=== PATIENT | male | born 1990 | race Caucasian/White ===

== ENCOUNTER 2025-04-26 09:45 | Outpatient (REF) | payer OTHER, SELFPAY ==
[2025-04-26 13:11] LABS: Appearance Urine Clear; Glucose Urine UA Negative (Negative); PH 6.0 (5.0-9.0); Specific Gravity - Urine 1.020 (1.005-1.025)
[2025-04-26 13:30] LABS: MANUAL DIFF FLAG NO
[2025-04-26 13:35] LABS: Hematocrit 44.1 % (42.0-52.0); Hemoglobin 14.8 g/dl (14.0-18.0); Imm Gran Abs Auto 0.01 X10*3/uL (0.00-0.03); Imm Gran Pct Auto 0.2 % (0.0-0.4); Lymphocytes Absolute Auto 1.5 X10*3/uL (1.2-4.9); Mean Corpuscular HGB Conc 33.6 g/dl (31.0-36.0); Mean Corpuscular Hemoglobin 29.1 pg (27.0-33.0); Mean Corpuscular Volume 86.6 fL (80.0-98.0); NRBC Abs Auto 0.000 X10*3/uL (0.0-0.012); NRBC Pct Auto 0.0 /100WBC (0.0-0.2); Platelet Count 281 X10*3/uL (160-400); Red Blood Count 5.09 X10*6/uL (4.60-5.80); White Blood Count 5.5 X10*3/uL (4.8-10.8)
[2025-04-26 13:58] LABS: Cholesterol 220 mg/dL (<200); HDL Cholesterol 46 mg/dL (>40); Magnesium 2.1 mg/dL (1.6-2.6); Triglycerides 121 mg/dL (<150)
[2025-04-26 19:00] LABS: Folate 9.7 ng/mL (> or = 4.0); Vitamin B12 431 pg/mL (200-900)
[2025-04-27 08:21] LABS: HBS Num1 144.45 mIU/mL (0-7.99); HBsAGNum1 0.42 S/CO (0.00-0.99); HIV Num 1 0.06 S/CO (0.00-0.99); Hepatitis B Surface Antigen Negative (Negative); ~HepC Num1 0.11 S/CO (0.00-0.79); ~Hepatitis B Surface Antibody REACTIVE (Nonreactive); ~Hepatitis C Antibody Nonreactive (Nonreactive)
[2025-04-30 04:54] LABS: VITAMIN D (1,25 OH) D3 43 pg/mL; Vit D (1,25-Dihydroxy) Total 43 pg/mL (18-72); Vitamin D (1,25 OH) D2 <8 pg/mL
== END 2025-04-26 09:46 | disposition home or self-care (01) ==
LOC: HO.HKASLDS 09:45
PROVIDERS: PCP Student in an Organized Health Care Education/Training Program; Visit Provider Student in an Organized Health Care Education/Training Program
DX: Z13.9 Encounter for screening, unspecified (principal); Z23 Encounter for immunization; M54.50 Low back pain, unspecified; R10.31 Right lower quadrant pain; I73.00 Raynaud's syndrome without gangrene; R03.0 Elevated blood-pressure reading, without diagnosis of hypertension; F17.290 Nicotine dependence, other tobacco product, uncomplicated; Z78.9 Other specified health status
CPT/HCPCS: 36415; 80061; 81003; 82607; 82652; 82746; 83036; 83735; 84443; 85025; 86706; 86803; 87340; 87389; 90471; 90656; 96127; 99202

== ENCOUNTER 2025-04-26 09:45 | Outpatient (AMB) | payer OTHER, SELFPAY ==
--- NOTE | 2025-04-26 09:46 | A.OFFPC_ITS ---
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 Consultant Required: No Accompanied by: Self / Same As Patient Allergies shellfish derived (shellfish) Allergy (Mild, Verified 04/26/25 09:52) Vomiting Tobacco use date assessed: 04/26/25 Dental Screening Dental Screen Date: 04/26/25 Did you have a dental visit in the last 12 months?: Yes Did you have a dental problem in the last 6 months where you did not have access to dental care?: No Was dental information given to patient?: Patient has dentist HPI HPI Comments History of Present Illness Details History of Present Illness The patient is a 34-year-old male presenting to establish primary care and for evaluation of lower back pain. Low back pain: The patient reports recurrent episodes of low back pain, with this being the third occurrence this year. The pain is typically triggered by exertion, such as pushing heavy equipment at his job in the . For the most recent episode, he sought treatment at an urgent care facility where he was prescribed a muscle relaxer, and he also uses a topical menthol product for relief. The patient owns a lumbar support belt but does not use it consistently. The back pain is currently better. Right lower quadrant abdominal pain: The patient reports intermittent discomfort in the right lower abdominal quadrant, near his belt line, which comes and goes. Recently, this has occurred almost every other day. He notes the sensation feels similar to being constipated, but he has regular bowel movements every one to two days without straining. The discomfort can also be felt when lying on his right side. Raynaud's phenomenon: The patient reports that two of his fingertips turn white-yellow when exposed to cold, which he identifies as Raynaud's phenomenon. He manages these episodes with heated gloves or hand warmers. Nicotine dependence: The patient uses nicotine pouches, consuming approximately four to five per day. He has been using them for two years after transitioning from e-cigarettes. Alcohol use: The patient reports drinking alcohol, typically beer and tequila, on Fridays, Saturdays, and Sundays. Elevated blood pressure: The patient had an elevated blood pressure reading during the visit. He denies any prior history of being told he has high blood pressure. Surgical History: - No prior surgical history reported. Medications: - Muscle relaxer (unspecified), as neede d for low back pain, obtained from urgent care. - Topical menthol analgesic, as needed f or low back pain. 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 - Tobacco/Nicotine: Uses 4-5 nicotine po uches daily for the past two years, having switched from e-cigarettes. - Alcohol: Drinks beer and tequila on we ekends (Friday, Friday, and Friday). - Illicit Drugs: Denies. - Diet: The patient's household diet con sists mainly of meat and vegetables due to his 's dietary restrictions, but he occasionally eats foods like pizza when outside the home. - Caffeine: Drinks one cup of coffee rodger ly. - Sleep: Aims for and typically gets sev en hours of sleep per night, which he tracks with his watch. Family History: - Mother: May have a history of diabetes and was treated with blood pressure medication. Diagnostic Results: - No prior results were discussed. Past Medical History - Recurrent low back pain - Raynaud's phenomenon Health Maintenance - Comprehensive baseline lab studies wer e ordered, including a complete blood count, hemoglobin A1c, hepatitis B and C screen, HIV test, lipid panel, magnesium, thyroid panel, urinalysis, vitamin B12, folate, and vitamin D. - The patient was counseled on the benef its of reducing alcohol and nicotine intake for overall health and blood pressure management. - Scheduled a follow-up visit in [facility] [place] to discuss lab results and re- evaluate his clinical status. [facility] Family History (Updated 04/26/25 @ 09:55 by Art Staton MA) Maternal Grandfather Stroke Mother Diabetes Other Thyroid disease Social History (Updated 04/26/25 @ 09:55 by Art Staton MA) Housing: House Alcohol intake: current Patient Tobacco Use Status: Never used Tobacco e-Cigarette/Vaping Use: Never Used service: Yes Current occupational status: employed Current occupation: Cognitive needs: No Hearing needs: No Vision needs: No Questionnaire PHQ-9 Over the last 2 weeks, how often have you been bothered by any of the following problems? 1. Little interest or pleasure in doing things: not at all 2. Feeling down, depressed, or hopeless: not at all 3. Trouble falling or staying asleep, or sleeping too much: not at all 4. Feeling tired or having little energy: several days 5. Poor appetite or overeating: several days 6. Feeling bad about yourself - or that you are a failure or have let yourself or your family down: not at all 7. Trouble concentrating on things, such as reading the newspaper or watching television: not at all 8. Moving or speaking so slowly that other people could have noticed. Or the opposite - being so fidgety or restless that you have been moving around a lot more than usual: not at all 9. Thoughts that you would be better off or of hurting yourself in some wa y: not at all Total score: 2 Depression Screening Interpretation: Negative Depression Screening Done: Yes 62730 - PHQ-9 Billing: Yes Source: Developed by Drs. Teddy Brown, Mariangel Bsuh, Bony Briceño and colleagues, with an educational joel from [employer]. Thrive Questionnaire Date Thrive assessed: 04/26/25 I am a: Patient What is your living situation today?: I have a steady place to live Within the past 12 months, did the food you bought not last and you didn't have the money to get more?: Never true Within the past 12 months, did you worry whether your food would run out before you got money to buy more?: Never true Do you have trouble paying for medicines?: No Do you have trouble getting transportation to medical appointments?: No Do you have trouble paying your heating and electricity bill?: No Do you have trouble taking care of your child, family member or friend?: No Are you currently unemployed and looking for a job?: No Are you interested in more education?: No Please select the resources that you would like help with: None Currently or been in a relationship where the following occur: No concerns reported THRIVE Score: 0 AUDIT C Alcohol Use Questionnaire (AUDIT-C) 1. How often do you have a drink containing alcohol?: 2-3 times a week 2. How many drinks containing alcohol do you have on a typical day when you are drinking?: 3 or 4 3. How often do you have six or more drinks on one occasion?: Less than monthly Total Score: 5 TOMY-7 AMB Questionnaire TOMY-7 Date TOMY - 7 assessed: 04/26/25 Feeling nervous, anxious, or on edge: 1 = Several days Not being able to stop or control worryin = Several days Worrying too much about different things: 1 = Several days Trouble relaxin = Several days Being so restless that it is hard to sit still: 1 = Several days Becoming easily annoyed or irritable: 1 = Several days Feeling afraid as if something awful might happen: 1 = Several days Total TOMY-7 score (0-4 normal; 5-9 mild; 10-14 moderate; 15-21 severe): 7 Source: Developed by Drs. Teddy Brown, Mariangel Bush, Bony Briceño and colleagues, with an educational joel from [employer]. Review of Systems Narrative Review of Systems - Musculoskeletal: Reports history of recurrent low back pain, which is currently improved. - Gastrointestinal: Reports intermittent discomfort in the right lower quadrant. - Denies constipation and has bowel movements every 1-2 days without straining. - Integumentary/Peripheral Vascular: Reports that two fingertips turn white/yellow with cold exposure. - Denies swelling in the lower extremities. - Neurological: Denies headaches upon waking. - Constitutional: Denies waking up feeling tired. - Respiratory: Denies snoring or gasping for air at night. 10-point ROS reviewed and negative except as noted in HPI Physical exam (Primary Care) Vital Signs: Last Vital Signs Temp 98.1 F 04/26/25 09:56 Pulse 67 04/26/25 09:56 Resp 16 04/26/25 09:56 BP 150/74 H 04/26/25 09:56 Pulse Ox 99 04/26/25 09:56 Oxygen Delivery Method Room Air 04/26/25 09:56 Tobacco/Smoking Status: Tobacco use Status Tobacco use date assessed 04/26/25 04/26/25 09:58 Patient Tobacco Use Status Never used Tobacco 04/26/25 09:58 e-Cigarette/Vaping Use Never Used 04/26/25 09:58 PHQ-9: PHQ-9 Score PHQ-9: Total score 2 04/26/25 10:32 Depression Screening Interpretation: Negative Thrive Assessment: Date of Thrive Assessment Date Thrive assessed 04/26/25 04/26/25 09:58 Currently or been in a relationship where the following occur: No concerns reported Narrative Physical Exam General: Well-appearing, in no acute distress. Vital signs: Blood pressure is elevated. HEENT: Normocephalic, atraumatic. PERRLA, EOMI. Conjunctiva clear, sclera anicteric. Oropharynx clear, mucous membranes moist. TMs intact bilaterally. Neck: Supple, no lymphadenopathy, no thyromegaly, no JVD or carotid bruits. Cardiovascular: RRR, normal S1/S2, no murmurs, rubs, or gallops. Peripheral pulses 2+ and symmetric. No edema. Respiratory: Lungs clear to auscultation bilaterally, no wheezes, rales, or rhonchi. Normal effort. Abdomen: Soft, non-tender, non-distended. Normoactive bowel sounds. No hepatosplenomegaly, no masses. Reports discomfort in the lower right section near the belt line, comes and goes, possibly related to inguinal area. MSK: Full range of motion, no joint swelling or deformity. Normal gait. Reports history of lower back pain due to exertion. Skin: Warm, dry, intact. No rashes, lesions, or pallor. Reports symptoms consistent with Raynaud's syndrome, with fingertips turning white/yellow in cold conditions. Neuro: Alert and oriented x3. Cranial nerves II-XII intact. Strength 5/5 throughout. Sensation intact. Reflexes 2+ symmetric. Normal coordination and gait. Psych: Appropriate mood and affect. Normal judgment and insight. Office Procedures Flu Questionnaire Does the patient have a severe egg allergy?: No Does the patient have severe life threatening allergies?: No Does the patient have a fever or illness today?: No Has the patient ever had Guillain-[place] Syndrome?: No Has the patient ever had any past reaction to a flu shot?: No Immunizations Fluarix [id number] (PF) 45 mcg (15 mcg x 3)/0.5 mL IM syringe Performing Provider: Brayden Beaver MD Performing Location: [facility] Administered by: Estee Patel CMA on 04/26/25 10:25 Dose Route Admin Location Dispensed Lot Number Expiration Date [employer] 0.5 mL IM Left Deltoid 0.5 mL [id number] 12/27/25 [id number] [employer] VIS Given Date VIS Provided VIS Publication Date 04/26/25 Single Vaccine 24 Eligibility Eligibility Date Funding Source Not [facility] Eligible 04/26/25 Private Coding Level of Care Code New Pt Level 4 (75228) Diagnoses Low back pain M54.50 Right lower quadrant abdominal pain R10.31 Raynauds phenomenon I73.00 Nicotine dependence F17.200 Alcohol use Z78.9 Elevated blood pressure reading R03.0 Additional Codes PHQ-9 - 65531 - PHQ-9 Billing: Yes ([id number]) Assessment & Plan Assessment & Plan (1) Low back pain: Code(s): M54.50 - Low back pain, unspecified (2) Right lower quadrant abdominal pain: Code(s): R10.31 - Right lower quadrant pain (3) Raynauds phenomenon: Code(s): I73.00 - Raynaud's syndrome without gangrene (4) Nicotine dependence: Code(s): F17.200 - Nicotine dependence, unspecified, uncomplicated (5) Alcohol use: Code(s): Z78.9 - Other specified health status (6) Elevated blood pressure reading: Code(s): R03.0 - Elevated blood-pressure reading, without diagnosis of hypertension Plan Consent Patient was informed and verbally consented to the use of an ambient scribe for clinic note documentation during this visit. Plan 1. Right Lower Quadrant Abdominal Pain - The patient was instructed to keep a journal to track episodes of pain, noting associated activities, diet, and bowel habits to identify potential patterns or triggers. - A follow-up appointment is scheduled in two weeks to review the journal findings. - Further diagnostic evaluation, such as a CT scan, will be considered at the follow-up visit if warranted. 2. Recurrent Low Back Pain - The patient was advised to use his lumbar support belt consistently at work to prevent re-injury, especially during physically demanding tasks. 3. Raynaud's Phenomenon - The patient's current management strategy of using heated gloves and hand warmers for symptomatic relief was affirmed as appropriate. Discussion Notes I met with the 34-year-old male who presented to establish care. We discussed his recurrent low back pain, and I emphasized prevention by consistently using his lumbar belt at work. Regarding his intermittent right lower quadrant pain, I explained the need to investigate potential triggers, and he agreed to keep a symptom journal for two weeks. We will review this journal at his follow-up to determine if further workup, like a CT scan, is necessary. I reviewed the health impacts of his nicotine and alcohol use, particularly in relation to his elevated blood pressure reading. I explained the rationale for ordering a comprehensive panel of baseline labs to assess his overall health, including liver function, cholesterol, and blood sugar. The patient understood the plan and will follow up in two weeks to discuss all results. Patient Instructions - Make sure to use your back brace at work, especially when pushing heavy equipment, to help prevent your back pain from returning. - For the next two weeks, please keep a daily journal. - Write down whenever you feel the discomfort in your lower right belly, what you were doing right before, what you ate that day, and your bowel movements. - Consider cutting down on drinking alcohol. - Please go to the lab to have your blood drawn for the tests we discussed. - Schedule a follow-up appointment in two weeks to go over your lab results and your symptom journal. Medical Decision Making The patient is a 34-year-old male establishing primary care with several active issues. His primary complaint is intermittent right lower quadrant abdominal discomfort, which is vague and has an unremarkable physical exam. Differential diagnoses are broad, including musculoskeletal strain, intermittent constipation (despite patient report of regular bowel movements), or less likely, an indolent inflammatory process. The initial diagnostic approach is conservative, involving symptom journaling to identify patterns related to diet or activity before considering imaging studies like a CT scan. His recurrent lumbar strain is clearly occupational, and the cornerstone of management is prevention through consistent use of a lumbar support belt. The elevated blood pressure reading is noted and could be attributed to a 'white coat' phenomenon, but the patient's significant nicotine and alcohol use are pertinent risk factors that warrant counseling and lifestyle modification. Comprehensive lab work is indicated for a new patient to establish a baseline, screen for metabolic and infectious diseases, and assess for any end-organ effects of his lifestyle choices, particularly on the liver and lipid profile. The patient's history is classic for Raynaud's phenomenon, which requires only symptomatic management. The plan is to follow up in two weeks to review all data and formulate the next steps. Total time spent caring for the patient today was 30 minutes. This includes time spent before the visit reviewing the chart, time spent documenting, and time spent reviewing laboratory results, diagnostic imaging, medications, performing a medically necessary evaluation, counseling on diagnoses, care coordination Orders: Orders Hepatitis B Surface Antibody Today Z13.9 - Encounter for screening, unspecified Hepatitis B Surface Antigen Today Z13.9 - Encounter for screening, unspecified Hepatitis C Antibody Today Z13.9 - Encounter for screening, unspecified TSH reflex Free T4 Today Z13.9 - Encounter for screening, unspecified Lipid Panel Today Z13.9 - Encounter for screening, unspecified HIV Ab/Ag Today Z13.9 - Encounter for screening, unspecified Complete Blood Count Auto Diff Today Z13.9 - Encounter for screening, unspecified Hemoglobin A1c Today Z13.9 - Encounter for screening, unspecified UA CC w/rflx Micro + Cult Today Z13.9 - Encounter for screening, unspecified Vitamin B12 and Folate Today Z13.9 - Encounter for screening, unspecified Vitamin D 1,25 dihydroxy Today Z13.9 - Encounter for screening, unspecified Magnesium Today Z13.9 - Encounter for screening, unspecified Influenza [id number] Immunization Today Z23 - Encounter for immunization
[2025-04-26 09:56] VITALS: BP 150/74; PULSE 67; RESP 16; TEMP 36.7; O2SAT 99
== END 2025-04-26 10:17 | disposition home or self-care (01) ==
PROVIDERS: PCP Student in an Organized Health Care Education/Training Program; Visit Provider Student in an Organized Health Care Education/Training Program
DX: M54.50 Low back pain, unspecified (principal); R10.31 Right lower quadrant pain; I73.00 Raynaud's syndrome without gangrene; F17.200 Nicotine dependence, unspecified, uncomplicated; Z78.9 Other specified health status; R03.0 Elevated blood-pressure reading, without diagnosis of hypertension; Z23 Encounter for immunization

== ENCOUNTER 2025-05-11 10:48 | Outpatient (AMB) | payer OTHER, SELFPAY ==
--- NOTE | 2025-05-11 10:49 | A.OFFPC_ITS ---
Vital Signs 05/11/25 10:53 Height 5 ft 7.2 in Weight 195 lb BMI 30.4 BP 140/73 H Blood Pressure Location Rt brachial Position Sitting Pulse 65 Pulse Source Pulse Oximeter Temp 97.9 F Temp Source Oral Pulse Oximetry (%) 98 Oxygen Delivery Method Room Air Intake Visit Reasons: 2 wk f/u - lab review Corn Popper Required: No Accompanied by: Self / Same As Patient Allergies shellfish derived (shellfish) Allergy (Mild, Verified 05/11/25 10:49) Vomiting Medication List - Last Reconciled 05/11/25 by Brayden Beaver MD No Known Home Meds Tobacco use date assessed: 05/11/25 Dental Screening Dental Screen Date: 05/11/25 Did you have a dental visit in the last 12 months?: Yes Did you have a dental problem in the last 6 months where you did not have access to dental care?: No Was dental information given to patient?: Patient has dentist HPI HPI Comments History of Present Illness Details History of Present Illness The patient is a 34-year-old male presenting for follow-up of right-sided abdominal pain and review of recent laboratory results. Right lower quadrant abdominal discomfort: The patient reports a three-month history of intermittent discomfort in the right lower quadrant of his abdomen. He describes the sensation as pressure or discomfort rather than sharp pain, which occurs when he lies down for bed, part icularly when lying prone on his stomach, and resolves during the day. The symptom is not related to food intake, as he typically eats about three hours before bed. There is no tenderness to palpation. He denies any history of abdominal surgeries. Hyperlipidemia: Recent laboratory results revealed an elevated total cholesterol of 220 mg/dL and an elevated LDL cholesterol of 150 mg/dL. His HDL cholesterol was 46 mg/dL. The patient reports that he eats a lot of eggs. His liver function tests were normal. Surgical History: - Denies any history of surgeries, inclu ding abdominal surgery. Social History: - Diet: Reports eating a lot of eggs. - Activity Level: Reports being active m ost days, performing activities around the house. Diagnostic Results: - CBC: Normal. - Chemistry panel: Normal. - Hemoglobin A1c: 5.1% (Normal). - Magnesium, Vitamin B12, Vitamin D, Thy roid function, Folate: Normal. - Lipid Panel: - Total Cholesterol: 220 mg/dL (Elevated ). - LDL Cholesterol: 150 mg/dL (Elevated). - HDL Cholesterol: 46 mg/dL (Normal). - Liver function tests: Normal. Past Medical History - Reports a past back injury but does no t feel it is related to the current abdominal symptoms. Health Maintenance - Lab screening shows hyperlipidemia wit h a total cholesterol of 220 mg/dL and LDL of 150 mg/dL. - Discussed dietary modifications to man age cholesterol, including reducing intake of cheese, high-fat dairy, and eggs, particularly the yolk. - Plan to recheck lipids in 6 months. [facility] Medical History (Updated 05/11/25 @ 20:25 by Brayden Beaver MD) Class 1 obesity Hyperlipidemia Right lower quadrant pain Family History Maternal Grandfather Stroke Mother Diabetes Other Thyroid disease Social History Housing: House Alcohol intake: current Patient Tobacco Use Status: Current someday Tobacco user e-Cigarette/Vaping Use: Former Use service: Yes Current occupational status: employed Current occupation: Cognitive needs: No Hearing needs: No Vision needs: No Questionnaire PHQ-9 Over the last 2 weeks, how often have you been bothered by any of the following problems? 1. Little interest or pleasure in doing things: not at all 2. Feeling down, depressed, or hopeless: not at all 3. Trouble falling or staying asleep, or sleeping too much: not at all 4. Feeling tired or having little energy: several days 5. Poor appetite or overeating: several days 6. Feeling bad about yourself - or that you are a failure or have let yourself or your family down: not at all 7. Trouble concentrating on things, such as reading the newspaper or watching television: not at all 8. Moving or speaking so slowly that other people could have noticed. Or the opposite - being so fidgety or restless that you have been moving around a lot more than usual: not at all 9. Thoughts that you would be better off or of hurting yourself in some way: not at all Total score: 2 Depression Screening Interpretation: Negative Depression Screening Done: Yes 61919 - PHQ-9 Billing: Yes Source: Developed by Drs. Teddy Brown, Mariangel Bush, Bony Briceño and colleagues, with an educational joel from [employer]. Thrive Questionnaire Date Thrive assessed: 05/11/25 I am a: Patient What is your living situation today?: I have a steady place to live Within the past 12 months, did the food you bought not last and you didn't have the money to get more?: Never true Within the past 12 months, did you worry whether your food would run out before you got money to buy more?: Never true Do you have trouble paying for medicines?: No Do you have trouble getting transportation to medical appointments?: No Do you have trouble paying your heating and electricity bill?: No Do you have trouble taking care of your child, family member or friend?: No Are you currently unemployed and looking for a job?: No Are you interested in more education?: No Please select the resources that you would like help with: None Currently or been in a relationship where the following occur: No concerns reported THRIVE Score: 0 AUDIT C Alcohol Use Questionnaire (AUDIT-C) 1. How often do you have a drink containing alcohol?: 2-3 times a week 2. How many drinks containing alcohol do you have on a typical day when you are drinking?: 3 or 4 3. How often do you have six or more drinks on one occasion?: Less than monthly Total Score: 5 TOMY-7 AMB Questionnaire TOMY-7 Date TOMY - 7 assessed: 05/11/25 Feeling nervous, anxious, or on edge: 1 = Several days Not being able to stop or control worryin = Several days Worrying too much about different things: 1 = Several days Trouble relaxin = Several days Being so restless that it is hard to sit still: 1 = Several days Becoming easily annoyed or irritable: 1 = Several days Feeling afraid as if something awful might happen: 1 = Several days Total TOMY-7 score (0-4 normal; 5-9 mild; 10-14 moderate; 15-21 severe): 7 Source: Developed by Drs. Teddy Brown, Mariangel Bush, Bony Briceño and colleagues, with an educational joel from [employer]. Review of Systems Narrative Review of Systems - Abdominal: Reports intermittent right lower quadrant pressure for the past 3 months, which is positional and occurs when lying down for bed. 10-point ROS reviewed and negative except as noted in HPI Physical exam (Primary Care) Vital Signs: Last Vital Signs Temp 97.9 F 05/11/25 10:53 Pulse 65 05/11/25 10:53 BP 140/73 H 05/11/25 10:53 Pulse Ox 98 05/11/25 10:53 Oxygen Delivery Method Room Air 05/11/25 10:53 BMI result Body Mass Index 30.4 Tobacco/Smoking Status: Tobacco use Status Tobacco use date assessed 05/11/25 05/11/25 10:50 Patient Tobacco Use Status Current someday Tobacco 05/11/25 10:56 e-Cigarette/Vaping Use Former Use 05/11/25 10:56 PHQ-9: PHQ-9 Score PHQ-9: Total score 2 05/11/25 10:52 Depression Screening Interpretation: Negative Thrive Assessment: Date of Thrive Assessment Date Thrive assessed 05/11/25 05/11/25 10:50 Currently or been in a relationship where the following occur: No concerns reported Narrative Physical Exam General: Well-appearing, in no acute distress. Vital signs: Within normal limits. HEENT: Normocephalic, atraumatic. PERRLA, EOMI. Conjunctiva clear, sclera anicteric. Oropharynx clear, mucous membranes moist. TMs intact bilaterally. Neck: Supple, no lymphadenopathy, no thyromegaly, no JVD or carotid bruits. Cardiovascular: RRR, normal S1/S2, no murmurs, rubs, or gallops. Peripheral pulses 2+ and symmetric. No edema. Respiratory: Lungs clear to auscultation bilaterally, no wheezes, rales, or rhonchi. Normal effort. Abdomen: Soft, non-tender, non-distended. Normoactive bowel sounds. No hepatosplenomegaly, no masses. Reports right lower quadrant pressure, particularly when lying face down or on the side. MSK: Full range of motion, no joint swelling or deformity. Normal gait. Skin: Warm, dry, intact. No rashes, lesions, or pallor. Neuro: Alert and oriented x3. Cranial nerves II-XII intact. Strength 5/5 throughout. Sensation intact. Reflexes 2+ symmetric. Normal coordination and gait. Psych: Appropriate mood and affect. Normal judgment and insight. Office Procedures Flu Questionnaire Does the patient have a severe egg allergy?: No Does the patient have severe life threatening allergies?: No Does the patient have a fever or illness today?: No Has the patient ever had Guillain-Deming Syndrome?: No Has the patient ever had any past reaction to a flu shot?: No Immunizations Fluarix [id number] (PF) 45 mcg (15 mcg x 3)/0.5 mL IM syringe Performing Provider: Brayden Beaver MD Performing Location: [facility] Documented (not given) by: Estee Patel CMA on 05/11/25 10:57 Reason Not Given: Received Previously Coding Level of Care Code Est Pt Level 3 (59432) Diagnoses Right lower quadrant pain R10.31 Hyperlipidemia E78.5 Class 1 obesity E66.9 Additional Codes PHQ-9 - 32456 - PHQ-9 Billing: Yes ([id number]) Assessment & Plan Assessment & Plan (1) Right lower quadrant pain: Code(s): R10.31 - Right lower quadrant pain Category: Medical (2) Hyperlipidemia: Code(s): E78.5 - Hyperlipidemia, unspecified Category: Medical (3) Class 1 obesity: Code(s): E66.9 - Obesity, unspecified Category: Medical Plan Consent Patient was informed and verbally consented to the use of an ambient scribe for clinic note documentation during this visit. Plan 1. Right Lower Quadrant Abdominal Discomfort - The patient presents with positional right lower quadrant discomfort that is intermittent and has been present for 3 months. - A hernia is considered in the differential diagnosis, though physical examination is unremarkable. - An ultrasound of the limited abdomen/right lower quadrant will be ordered to further evaluate the etiology of his symptoms. - Patient advised to follow up after the imaging is completed. 2. Hyperlipidemia - Laboratory results are notable for elevated total cholesterol (220 mg/dL) and LDL cholesterol (150 mg/dL). - Recommended lifestyle and dietary modifications, including reducing the intake of foods such as cheese, high-fat dairy, and eggs, particularly the yolk. - Plan to recheck the lipid panel in 6 months to monitor response to these interventions. Discussion Notes I discussed the patient's report of positional, right-sided abdominal pressure that has been occurring for about three months. I explained that while his sympt oms are atypical, an underlying cause such as a hernia should be investigated, even though the physical exam was negative. I informed him that I am ordering an ultrasound to get a better look at the area. We also reviewed his lab results, and I noted his total and LDL cholesterol levels were elevated. I advised dietary changes, such as cutting back on eggs and fatty dairy products, to help lower these numbers. I recommended we recheck his cholesterol in six months. I instructed him to schedule a follow-up appointment after the ultrasound is completed. Patient Instructions - An ultrasound of your abdomen has been ordered. - Someone will call you to schedule the ultrasound, which will be done at the [facility]. - Please come back for a follow-up visit after your ultrasound is done. - To help lower your cholesterol, try to reduce your intake of foods like cheese, whole milk, and egg yolks. - We will plan to check your blood work again in about 6 months. Medical Decision Making The patient is a 34-year-old male presenting with a 3-month history of intermittent, positional right lower quadrant pressure. The discomfort occurs specifically when he lies down at night and resolves during the day. The differential diagnosis includes an inguinal or other abdominal wall hernia, given the positional nature of the symptom, although the physical exam was unremarkable with no palpable defect. The atypical presentation warrants further investigation; therefore, an ultrasound of the limited abdomen/right lower quadrant is the appropriate initial imaging study. Separately, review of recent lab results revealed hyperlipidemia, with total cholesterol of 220 mg/dL and LDL of 150 mg/dL. Given his age and otherwise healthy status, including normal liver function, the initial approach is therapeutic lifestyle changes. Dietary counseling was provided, and a follow-up lipid panel in 6 months is planned to assess for improvement, with no pharmacotherapy indicated at this time. Total time spent caring for the patient today was minutes. This includes time spent before the visit reviewing the chart, time spent documenting, and time spent reviewing laboratory results, diagnostic imaging, medications, performing a medically necessary evaluation, counseling on diagnoses, care coordination, ordering appropriate tests, ordering appropriate medications, review of tests performed by other providers, reporting test results with the patient, communication with other healthcare providers. Orders: Orders Influenza [id number] Immunization Today Z23 - Encounter for immunization
[2025-05-11 10:53] VITALS: BP 140/73; PULSE 65; TEMP 36.6; O2SAT 98; BMI 30.4
== END 2025-05-11 11:10 | disposition home or self-care (01) ==
PROVIDERS: PCP Student in an Organized Health Care Education/Training Program; Visit Provider Student in an Organized Health Care Education/Training Program
DX: R10.31 Right lower quadrant pain (principal); E78.5 Hyperlipidemia, unspecified; E66.9 Obesity, unspecified; Z23 Encounter for immunization

== ENCOUNTER → 2025-05-11 10:48 | Outpatient (BNVA) | payer OTHER, SELFPAY | PROVIDERS: PCP Student in an Organized Health Care Education/Training Program; Visit Provider Student in an Organized Health Care Education/Training Program | DX: R10.31 Right lower quadrant pain (principal); E78.5 Hyperlipidemia, unspecified; E66.811 Obesity, class 1; Z68.30 Body mass index [BMI] 30.0-30.9, adult; Z13.30 Encounter for screening examination for mental health and behavioral disorders, unspecified | CPT/HCPCS: 90471; 96127; 99212 ==